=== PATIENT | female | born 1990 | race African-American/Black ===

== ENCOUNTER 2018-12-26 15:33 | Emergency (ER) | payer MEDICAID, OTHER ==
[2018-12-26 15:56] VITALS: BP 123/76
--- NOTE | 2018-12-26 16:31 | EDM.PDOC ---
ED HPI GENERAL MEDICAL PROBLEM - General Chief Complaint: Abdominal Pain Stated Complaint: BACK PAIN, DIZZY Time Seen by Provider: 12/26/18 16:06 Source of Information: Reports: Patient History Limitations: Reports: No Limitations - History of Present Illness INITIAL COMMENTS - FREE TEXT/NARRATIVE: HISTORY AND PHYSICAL: History of present illness: Patient is a 28-year-old female who presents to the ED today with concerns of lower abdominal pain that radiates down into the tops of her legs. She states that in general, she has bad menstrual cycles, but today the pain is a 10 out of 10 to the point where she cannot tolerate it. She says she started bleeding this morning and has taken ibuprofen with no relief. She describes the pain as constant and sharp. Patient is not currently on control and does not use any means of control and is sexually active. Patient denies any recent injuries or falls. [place] fever, chills, nausea, vomiting, change in bowel movement, change in urine , burning with urination, or all other GI or symptoms. Sensation has had a history of issues with her cycles in the past and follows an [employer] [facility] in [place]. Review of systems: As per history of present illness and below otherwise all systems reviewed and negative. Past medical history: As per history of present illness and as reviewed below otherwise noncontributory. Surgical history: As per history of present illness and as reviewed below otherwise noncontributory. Social history: See social history for further information Family history: As per history of present illness and as reviewed below otherwise noncontributory. Physical exam: General: Patient is alert, oriented, and in no acute distress. She is tearful throughout exam but sitting comfortably on exam table. HEENT: Atraumatic, normocephalic, pupils equal and reactive bilaterally, negative for conjunctival pallor or scleral icterus, mucous membranes moist, TMs normal bilaterally, throat clear, neck supple, nontender, trachea midline. No drooling or trismus noted. No meningeal signs. No hot potato voice noted. Lungs: Clear to auscultation, breath sounds equal bilaterally, chest nontender. Heart: S1S2, regular rate and rhythm without overt murmur Abdomen: Mild pain to palpation of the pelvic area. Otherwise, soft, nondistended, nontender. Negative for masses or hepatosplenomegaly. Negative for costovertebral tenderness. Pelvis: Stable nontender. Genitourinary: Deferred. Rectal: Deferred. Skin: Intact, warm, dry. No lesions or rashes noted. Extremities: Atraumatic, negative for cords or calf pain. Neurovascular unremarkable. Neuro: Awake, alert, oriented. Cranial nerves II through XII unremarkable. Cerebellum unremarkable. Motor and sensory unremarkable throughout. Exam nonfocal. Notes: UA does have some blood and WBCs the patient is currently on her menstrual cycle. We'll treat the urinary tract infection. Otherwise up work is unremarkable. Supportive care measures were reviewed and discussed. Encouraged her to follow up with her [employer] if she continues to have the pelvic discomfort. She voices understanding and is agreeable to plan of care. Denies any further questions or concerns at this time. Diagnostics: UA, urine hCG Therapeutics: Tylenol #3 Prescription: Macrobid Tylenol #3 Pyridum Impression: Menstrual cramps UTI Plan: 1. Increase your oral fluids. Please take the antibiotic as directed. You can use ibuprofen or Tylenol as needed for pain. Tylenol #3 for moderate to severe pain. This medication may cause drowsiness a do not take it will driving her needing to be functioning outside of the house. 2. Follow-up with your [employer] or primary care provider. 3. Return to the ED as needed and as discussed. Definitive disposition and diagnosis as appropriate pending reevaluation and review of above. lower back, abdomen, vaginal, legs Pain Score (Numeric/FACES): 10 - Related Data Allergies Allergy/AdvReac Type Severity Reaction Status Date / Time sulfamethoxazole Allergy Difficulty Verified 12/26/18 15:56 [From Bactrim] Breathing trimethoprim [From Bactrim] Allergy Difficulty Verified 12/26/18 15:56 Breathing Home Meds: Home Meds Acetaminophen with Codeine [Tylenol with Codeine #3 Tablet] 1 each PO Q4HR PRN # 15 tablet 12/26/18 [Rx] Nitrofurantoin Monohyd/M-Cryst [Macrobid 100 mg Capsule] 100 mg PO BID 7 Days # 14 capsule 12/26/18 [Rx] Phenazopyridine HCl [Pyridium] 100 mg PO TID #6 tablet 12/26/18 [Rx] Past Medical History Musculoskeletal History: Reports: Back Pain, Chronic Neurological History: Reports: Migraines - Past Surgical History Female Surgical History: Reports: Other (See Below) Other Female Surgeries/Procedures: Dysmennorhea Musculoskeletal Surgical History: Reports: Other (See Below) Other Musculoskeletal Surgeries/Procedures:: Ankle Scope Social & Family History - Family History Endocrine/Metabolic: Reports: Hypothyroidism Oncologic: Reports: Cervix - Tobacco Use Smoking Status *Q: Current Every Day Smoker Years of Tobacco use: 10 Packs/Tins Daily: 0.3 - Caffeine Use Caffeine Use: Reports: Coffee - Recreational Drug Use Recreational Drug Use: No ED ROS GENERAL - Review of Systems Review Of Systems: ROS reveals no pertinent complaints other than HPI. ED EXAM, GI/ABD - Physical Exam Exam: See Below (See dictation) Course - Vital Signs Last Recorded V/S: Last Vital Signs Temp 96.9 F 12/26/18 15:53 Pulse 87 12/26/18 15:53 Resp 20 12/26/18 15:53 BP 123/76 12/26/18 15:53 Pulse Ox 97 12/26/18 15:53 - Orders/Labs/Meds Orders: Active Orders 24 hr Category Date Time Status BMP [BASIC METABOLIC PANEL,BMP] [CHEM] Stat Lab 12/26/18 17:10 Received Labs: Laboratory Tests 12/26/18 12/26/18 12/26/18 Range/Units 16:13 16:13 17:10 WBC 4.91 (4.0-11.0) K/uL RBC 4.53 (4.30-5.90) M/uL Hgb 12.1 (12.0-16.0) g/dL Hct 35.8 L (36.0-46.0) % MCV 79.0 L (80.0-98.0) fL MCH 26.7 L (27.0-32.0) pg MCHC 33.8 (31.0-37.0) g/dL RDW Std Deviation 39.0 (28.0-62.0) fl RDW Coeff of Juani 14 (11.0-15.0) % Plt Count 330 (150-400) K/uL MPV 10.00 (7.40-12.00) fL Neut % (Auto) 44.8 L (48.0-80.0) % Lymph % (Auto) 42.2 H (16.0-40.0) % [place] % (Auto) 8.1 (0.0-15.0) % Eos % (Auto) 4.7 (0.0-7.0) % Baso % (Auto) 0.2 (0.0-1.5) % Neut # (Auto) 2.2 (1.4-5.7) K/uL Lymph # (Auto) 2.1 (0.6-2.4) K/uL [place] # (Auto) 0.4 (0.0-0.8) K/uL Eos # (Auto) 0.2 (0.0-0.7) K/uL Baso # (Auto) 0.0 (0.0-0.1) K/uL Nucleated RBC % 0.0 /100WBC Nucleated RBCs # 0 K/uL Urine Color YELLOW Urine Appearance SLT CLOUDY Urine pH 6.0 (5.0-8.0) Ur Specific [place] >= 1.030 (1.001-1.035) Urine Protein TRACE H (NEGATIVE) mg/dL Urine Glucose (UA) NEGATIVE (NEGATIVE) mg/dL Urine Ketones NEGATIVE (NEGATIVE) mg/dL Urine Occult Blood LARGE H (NEGATIVE) Urine Nitrite NEGATIVE (NEGATIVE) Urine Bilirubin SMALL H (NEGATIVE) Urine Urobilinogen 0.2 (<2.0) EU/dL Ur Leukocyte Esterase TRACE H (NEGATIVE) Urine RBC 350-400 (0-2/HPF) Urine WBC 2-6 (0-5/HPF) Ur Epithelial Cells FEW (NONE-FEW) Amorphous Sediment DIAMOND SIZER Urine Bacteria FEW (NEGATIVE) Urine Mucus FEW (NONE-MOD) Urine HCG, Qual NEGATIVE (NEGATIVE) Meds: Medications Discontinued Medications Generic Name Dose Route Start Last Admin Trade Name Juan Joseq PRN Reason Stop Dose Admin Acetaminophen/Codeine Phosphate 1 tab 12/26/18 17:19 Tylenol With Codeine No.3 300mg/30mg PO 12/26/18 17:20 ONETIME ONE Departure - Departure Time of Disposition: 17:22 Disposition: Home, Self-Care 01 Clinical Impression: Menses painful UTI (urinary tract infection) Qualifiers: Urinary tract infection type: acute cystitis Hematuria presence: with hematuria Qualified Code(s): N30.01 - Acute cystitis with hematuria - Discharge Information Prescriptions: Acetaminophen with Codeine [Tylenol with Codeine #3 Tablet] 1 each PO Q4HR PRN # 15 tablet PRN Reason: Pain Nitrofurantoin Monohyd/M-Cryst [Macrobid 100 mg Capsule] 100 mg PO BID 7 Days # 14 capsule Phenazopyridine HCl [Pyridium] 100 mg PO TID #6 tablet Instructions: Urinary Tract Infection, Adult, [id number] Forms: ED Department Discharge Additional Instructions: The following information is given to patients seen in the emergency department who are being discharged to home. This information is to outline your options for follow-up care. We provide all patients seen in our emergency department with a follow-up referral. The need for follow-up, as well as the timing and circumstances, are variable depending upon the specifics of your emergency department visit. If you don't have a primary care physician on staff, we will provide you with a referral. We always advise you to contact your personal physician following an emergency department visit to inform them of the circumstance of the visit and for follow-up with them and/or the need for any referrals to a consulting specialist. The emergency department will also refer you to a specialist when appropriate. This referral assures that you have the opportunity for follow-up care with a specialist. All of these measure are taken in an effort to provide you with optimal care, which includes your follow-up. Under all circumstances we always encourage you to contact your private physician who remains a resource for coordinating your care. When calling for follow-up care, please make the office aware that this follow-up is from your recent emergency room visit. If for any reason you are refused follow-up, please contact the [facility] Emergency Department at and asked to speak to the emergency department charge nurse. [facility] [address] [place] [id number] [facility] [address] [place] [id number] [facility] [address] [place] [address] 1. Increase your oral fluids. Please take the antibiotic as directed. You can use ibuprofen or Tylenol as needed for pain. Tylenol #3 for moderate to severe pain. This medication may cause drowsiness a do not take it will driving her needing to be functioning outside of the house. 2. Follow-up with your [employer] or primary care provider. 3. Return to the ED as needed and as discussed. - My Orders Last 24 Hours: My Active Orders 12/26/18 17:10 BMP [BASIC METABOLIC PANEL,BMP] [CHEM] Stat - Assessment/Plan Last 24 Hours: My Active Orders 12/26/18 17:10 BMP [BASIC METABOLIC PANEL,BMP] [CHEM] Stat
[2018-12-26] MEDS ORDERED: Acetaminophen/Codeine 300-30 MG Tab PO ONE (17:19)
[2018-12-26 17:33] LABS: CHLORIDE,CL 103 mmol/L (98-107); SODIUM,NA 137 mmol/L (136-145)
== END 2018-12-26 17:53 | disposition home or self-care (01) ==
LOC: MW.ED 15:33
DX: N30.01 Acute cystitis with hematuria (principal); N94.6 Dysmenorrhea, unspecified; F17.210 Nicotine dependence, cigarettes, uncomplicated; Z88.2 Allergy status to sulfonamides; Z88.1 Allergy status to other antibiotic agents
CPT/HCPCS: 36415; 80048; 81001; 81025; 85025; 99283; A9270